=== PATIENT | female | born 1985 | race Caucasian/White ===

== ENCOUNTER 2017-05-08 06:30 | Outpatient (RCR) | payer OTHER ==
[2017-05-08] MEDS ORDERED: MAGN200T PO (07:13)
[2017-05-08] MEDS ORDERED: ACCUTANE PO (07:13)
[2017-05-08] MEDS ORDERED: VITAMIN D (07:13)
[2017-05-08] MEDS ORDERED: PROBCAP4 PO (07:13)
== END 2017-05-23 ==
LOC: EDUNIT# 06:30 → M OT 06:30
PROVIDERS: ATTEND Physician Assistant
DX: M79.641 Pain in right hand (principal)

== ENCOUNTER 2017-05-08 06:48 | Emergency (ER) | payer OTHER ==
[~2017-05-08] VITALS: Ht 175.3 cm; Wt 59.1 kg
[2017-05-08] MEDS ORDERED: PROBCAP4 PO (07:13)
[2017-05-08] MEDS ORDERED: VITAMIN D (07:13)
[2017-05-08] MEDS ORDERED: MAGN200T PO (07:13)
[2017-05-08] MEDS ORDERED: ACCUTANE PO (07:13)
[2017-05-08 07:46] LABS: BASO % 0.4 % (0.0-1.0); EOS % 0.5 % (0.0-3.0); IMMATURE GRANULOCYTE % 0.3 % (0-0); LYMPH # 1.2 10^3/uL (1.5-6.5); LYMPH % 15.5 % (24.0-44.0); MEAN CORPUSCULAR HEMOGLOBIN 29.3 pg (27.0-33.0); MEAN CORPUSCULAR HGB CONC 33.4 g/dl (32.0-36.5); MEAN CORPUSCULAR VOLUME 87.8 fl (80.0-96.0); MONO # 0.5 10^3/uL (0.0-0.8); MONO % 6.7 % (0.0-5.0); NEUTROPHILS # 5.7 10^3/uL (1.8-7.7); NEUTROPHILS % 76.6 % (36.0-66.0); PLATELET COUNT, AUTOMATED 191 10^3/uL (150-450); RED CELL DISTRIBUTION WIDTH 12.6 % (11.5-14.5); WHITE BLOOD COUNT 7.4 10^3/uL (4.0-10.0)
[2017-05-08 07:56] LABS: CONTROL LINE HCG INT CTR LINE PRESENT
[2017-05-08 08:03] LABS: ALBUMIN 4.3 GM/DL (3.2-5.2); ALBUMIN/GLOBULIN RATIO 1.34 (1.00-1.93); ALKALINE PHOSPHATASE 84 U/L (45-117); ALT/SGPT 21 U/L (12-78); ANION GAP 6 MEQ/L (8-16); AST/SGOT 21 U/L (7-37); BILIRUBIN,DIRECT 0.1 MG/DL (0.0-0.2); BILIRUBIN,TOTAL 0.4 MG/DL (0.2-1.0); BLOOD UREA NITROGEN 18 MG/DL (7-18); CALCIUM LEVEL 8.9 MG/DL (8.5-10.1); CARBON DIOXIDE LEVEL 26 MEQ/L (21-32); CHLORIDE LEVEL 108 MEQ/L (98-107); GLOMERULAR FILTRATION RATE > 60.0 (>60); GLUCOSE, FASTING 103 MG/DL (70-105); POTASSIUM SERUM 4.4 MEQ/L (3.5-5.1); SODIUM LEVEL 140 MEQ/L (136-145); TOTAL PROTEIN 7.5 GM/DL (6.4-8.2)
--- NOTE | 2017-05-08 09:29 | REP ---
CHEST, SINGLE VIEW: There is no evidence of acute infiltrate. No pleural effusion is seen. The heart is normal in size. The mediastinal silhouette is unremarkable. The visualized osseous structures are intact. IMPRESSION: No acute pulmonary disease. Signed by Terry Hopkins MD 05/08/2017 11:38 A
--- NOTE | 2017-05-08 09:32 | REP ---
Clinical: Right upper quadrant pain. Technique: Real time gomes scale ultrasound examination using curved array transducer. Findings: The gallbladder is distended measuring greater than 3.5 cm diameter and 8.5 cm in length without obvious wall thickening, pericholecystic fluid or cholelithiasis. However, a positive sonographic Rehman's sign was elicited during examination. No biliary ductal dilatation is appreciated and the common bile duct measures 5.8 mm diameter. Liver and pancreas are normal in contour, size, echogenicity without focal hepatic or pancreatic lesion identified. The right kidney is normal in appearance and measures 10.6 x 5.2 x 3.8 cm. No ascites. Impression: Positive sonographic Rehman's sign with distended gallbladder. Clinical correlation is required. No cholelithiasis or further sonographic evidence to suggest acute cholecystitis. Signed by Conrado Nielsen MD 05/08/2017 09:23 A
[2017-05-08] MEDS ORDERED: NS 1,000 ML IV ONE (10:00)
[2017-05-08] MEDS ORDERED: ONDANSETRON 4MG/2ML VIAL (J2405) IV ONE (10:00)
[2017-05-08] MEDS ORDERED: ISOVUE-370 76% 100ML VIAL (Q9967) As Ordered ONE (10:19)
--- NOTE | 2017-05-08 10:50 | REP ---
Clinical: Acute chest pain. Technique: Axial contrast enhanced images from the thoracic inlet to the upper abdomen using 100 ml Isovue 370 intravenous contrast material with multiplanar MIP re-formations. Findings: Satisfactory enhancement of the pulmonary vasculature is achieved and no filling defects are identified to suggest pulmonary embolus. Thoracic aorta is normal in appearance without aneurysm or dissection. Heart and pericardium are normal. The bilateral lung polanco are well-aerated. No acute consolidation, nodule or mass lesion. No pleural effusion/reaction or pneumothorax. Tracheobronchial tree is patent. No adenopathy. Surrounding musculoskeletal structures are intact. Limited upper abdomen demonstrates normal bilateral adrenal glands. Impression: Normal contrast enhanced chest CT. No pulmonary embolus. No mediastinal or pleuroparenchymal process. Signed by Conrado Nielsen MD 05/08/2017 10:42 A
[2017-05-08 11:58] VITALS: BP 100/63
--- NOTE | 2017-05-08 14:22 | ECGEPIP ---
Stationary ECG Study [facility] - ED Test Date: 2017-05-08 Pat Name: ИВАН ROSENBERG Department: Room: - Gender: F [employer]: GILL : 1985 Requested By: LINDSAY Adams Order Number: [id number] Reading MD: Julissa Dean Measurements Intervals [place] Rate: 54 P: 75 TX: 156 QRS: 75 QRSD: 97 T: 62 QT: 448 QTc: 427 Interpretive Statements SINUS BRADYCARDIA NO PRIOR FOR COMPARISON Electronically Signed On 05-08-2017 14:22:20 EST by Julissa Dean
== END 2017-05-08 11:59 | disposition home or self-care (01) ==
LOC: M ED 06:48
DX: R10.11 Right upper quadrant pain (principal); R00.1 Bradycardia, unspecified; G43.909 Migraine, unspecified, not intractable, without status migrainosus; N83.299 Other ovarian cyst, unspecified side; Z79.899 Other long term (current) drug therapy; Z88.1 Allergy status to other antibiotic agents
CPT/HCPCS: 71010; 71275; 76705; 80048; 80076; 83690; 84703; 85025; 93005; 93041; 96374; 99284; J2405; Q9967